=== PATIENT | male | born 1980 | race African-American/Black ===

== ENCOUNTER 2016-07-10 04:42 | Emergency (ER) | payer SELFPAY | END 2016-07-10 04:45 | disposition home or self-care (01) | LOC: CED 04:42 | DX: K08.89 Other specified disorders of teeth and supporting structures (principal); I10 Essential (primary) hypertension; F17.200 Nicotine dependence, unspecified, uncomplicated | CPT/HCPCS: 99282 ==

== ENCOUNTER 2016-09-07 13:07 | Emergency (ER) | payer SELFPAY ==
[2016-09-07 13:08] LABS: URINE SOURCE CLEAN CATCH
[2016-09-07 13:18] LABS: URINE APPEARANCE CLEAR; URINE BILIRUBIN NEG (NEG); URINE BLOOD NEG (NEG); URINE COLOR YELLOW; URINE GLUCOSE NEG (NEG); URINE KETONE NEG (NEG); URINE LEUKOCYTE ESTERASE NEG (NEG); URINE NITRATE NEG (NEG); URINE PH 6.5 (5-8); URINE PROTEIN NEG (NEG); URINE SPECIFIC GRAVITY 1.019 (1.003-1.035); URINE UROBILINOGEN 0.2 MG/DL (NEG)
[2016-09-07 13:34] LABS: CULTURE INDICATED? NO
[2016-09-09 21:04] LABS: CHLAMYDIA TRACH Not Detected (Not Detected); N GONOR Not Detected (Not Detected)
== END 2016-09-07 13:49 | disposition home or self-care (01) ==
LOC: CFTX 13:07
PROVIDERS: Physician Assistant
DX: S39.012A Strain of muscle, fascia and tendon of lower back, initial encounter (principal); I10 Essential (primary) hypertension; F17.210 Nicotine dependence, cigarettes, uncomplicated; X58.XXXA Exposure to other specified factors, initial encounter; Y92.9 Unspecified place or not applicable
CPT/HCPCS: 81003; 87491; 87591; 99283

== ENCOUNTER 2016-11-28 18:11 | Emergency (ER) | payer SELFPAY ==
[~2016-11-28] VITALS: Ht 175.3 cm; Wt 79.4 kg
== END 2016-11-28 18:40 | disposition home or self-care (01) ==
LOC: CED 18:11 → CFTX 18:11
DX: K02.9 Dental caries, unspecified (principal)
CPT/HCPCS: 99282